=== PATIENT | male | born 1970 | race Two or more races ===

== ENCOUNTER 2016-06-22 13:36 | Emergency (ER) | payer OTHER ==
[~2016-06-22] VITALS: Ht 165.1 cm; Wt 90.7 kg
[2016-06-22 14:43] VITALS: BP 103/64
[2016-06-22] MEDS ORDERED: IBUPROFEN 800 MG TAB PO ONE (14:45)
[2016-06-22] MEDS ORDERED: cefTRIAXone SOD 1,000 MG VL ONE (15:14)
[2016-06-22] MEDS ORDERED: methylPREDNISolone SOD SUCC 125 MG/2 ML VL ONE (15:14)
[2016-06-22] MEDS ORDERED: methylPREDNISolone SOD SUCC 125 MG/2 ML VL IM ONE (15:30)
[2016-06-22] MEDS ORDERED: cefTRIAXone SOD 1,000 MG VL IM ONE (15:30)
[2016-06-22] MEDS ORDERED: ACETAMINOPHEN 325 MG TAB PO ONE (15:30)
== END 2016-06-22 15:32 | disposition home or self-care (01) ==
LOC: ER 13:53
DX: J03.90 Acute tonsillitis, unspecified (principal)
CPT/HCPCS: 96372; 99284; J0696; J2930